=== PATIENT | female | born 1995 | race Caucasian/White ===

== ENCOUNTER 2016-12-08 21:40 | Emergency (ER) | payer BC ==
--- NOTE | ~2016-12-08 | EKG ---
PATIENT: BEBO MATTSON UNIT #: [id number] Ventricular Rate: 75 BPM Atrial Rate: 75 BPM P-R Interval: 136 ms QRS Duration: 80 ms Q-T Interval: 412 ms QTC Calculation(Bezet): 460 ms P [place]: 67 degrees Calculated R [place]: 79 degrees Calculated T [place]: 47 degrees Diagnosis Line: Normal sinus rhythm with sinus arrhythmia Diagnosis Line: Normal ECG Diagnosis Line: No previous ECGs available Diagnosis Line: Confirmed by MARIE MOODY MD ([id number]) on 12/09/2016 Diagnosis Line: 5:44:34 PM INTERPRETING MD: FRANSISCO WATSON
--- NOTE | ~2016-12-08 | CR72 ---
[facility] A Service of [facility] & [facility] RADIOLOGY TEXT RESULTS PATIENT: BEBO MATTSON LOCATION: [facility] : [birth year] UNIT #: [id number] AGE: [address]: Galileo Almaraz MD SEX: F ORDER DR: [id number] [facility] [address] [place], [place] [address] [id number] E MR#: [id number] Acc #: [id number] NAME: BEBO MATTSON : 1995 SEX: F STUDY DATE/TIME: 12/08/2016 23:19 UNIT: [facility] ROOM: STUDY DESCRIPTION: CR Chest Single View Portable Attending Physician: Galileo Almaraz M.D. Ordering Physician: Galileo Almaraz M.D. Primary Care Physician: Juliane Lucas M.D. MEDICAL IMAGING REPORT This report is preliminary unless electronic signature is present EXAM AP portable chest, 12/08/2016 at 23:19. HISTORY Chest pain, shortness of breath, headache and numbness in the hands starting today. No known injury. COMPARISON STUDIES None FINDINGS A single AP portable view of the chest shows both lungs to be clear. The heart is normal in size. The mediastinal contour is normal. No significant bone abnormalities are seen. IMPRESSION Normal portable chest. Dictated by... Solange Gabriel M.D. THIS IS AN ELECTRONICALLY VERIFIED REPORT Solange Gabriel M.D. at 12/10/2016 12:12 AM SAUL/higinio TD: 12/09/2016 11:52 JOB #: [id number] MEDICAL IMAGING REPORT COPY
[2016-12-08 22:24] LABS: BASOPHIL# 0.1 X10e3 (0-0.3); BASOPHIL% 0.7 % (0-2.5); EOSINOPHIL% 0.1 % (0.0-7.0); HEMOGLOBIN 13.3 gm/dL (12.0-16.0); LYMPHOCYTE# 1.8 X10e3 (1.0-3.5); LYMPHOCYTE% 12.6 % (17.0-45.0); MEAN CELL VOLUME 89.6 FL (83-96); MEAN CORPUSCULAR HGB CONC 32.4 g/dL (30-36); MEAN PLATELET VOLUME 8.4 FL (6.5-11.5); MONOCYTE# 0.7 X10e3 (0-1.0); MONOCYTE% 4.9 % (3.0-12.0); NEUTROPHIL% 81.7 % (40-75); PLATELET COUNT 299 X10e3 (140-420); RED BLOOD COUNT 4.57 X10e (3.90-5.30); WHITE BLOOD COUNT 14.7 X10e3 (4.0-10.5)
[2016-12-08 22:28] LABS: DIFF IND NO
[2016-12-08 22:51] LABS: ALKALINE PHOSPHATASE 45 U/L (32-92); ALT (SGPT) 12 U/L (10-40); AST (SGOT) 19 U/L (10-42); BILIRUBIN, DIRECT 0.1 mg/dL (0.0-0.2); BILIRUBIN,INDIRECT 0.1 mg/dL (0.0-0.9); BILIRUBIN,TOTAL 0.2 mg/dL (0.2-2.0); BLOOD UREA NITROGEN 8 mg/dL (9-23); CALCIUM SERUM 9.8 mg/dL (8.4-10.2); CARBON DIOXIDE 24 mmol/L (22-31); CHLORIDE 107 mmol/L (100-111); CREATININE SERUM 0.8 mg/dL (0.6-1.4); GLOM FILT RATE Estimated ABOVE60 mL/min (>60); GLUCOSE FASTING 111 mg/dL (70-110); POTASSIUM 3.5 mmol/L (3.5-5.1); PROTEIN TOTAL SERUM 7.1 g/dL (6.0-8.3); SODIUM 139 mmol/L (135-145)
[2016-12-08 22:53] LABS: URINE SOURCE CLEAN CATCH
[2016-12-08 22:57] LABS: URINE APPEARANCE CLEAR; URINE BILIRUBIN NEG (NEG); URINE BLOOD NEG (NEG); URINE COLOR YELLOW; URINE GLUCOSE NEG (NEG); URINE KETONE 1+ (NEG); URINE LEUKOCYTE ESTERASE NEG (NEG); URINE NITRATE NEG (NEG); URINE PROTEIN TRACE (NEG); URINE SPECIFIC GRAVITY 1.018 (1.003-1.035); URINE UROBILINOGEN 0.2 MG/DL (NEG)
[2016-12-08 22:59] LABS: CULTURE INDICATED? NO; URINE PH 9.5 (5-8)
[2016-12-08 23:06] LABS: AMPHETAMINE NEG (NEG); BARBITURATES NEG (NEG); BENZODIAZEPINES NEG (NEG); COCAINE NEG (NEG); MARIJUANA NEG (NEG); OPIATES NEG (NEG); TRICYCLIC ANTIDEPRESSANTS NEG (NEG); U METHADONE NEG (NEG)
[2016-12-08 23:13] LABS: INFLUENZA A NEG (NEG); INFLUENZA B NEG (NEG)
[2016-12-09 01:22] LABS: POC - CKMB <1.0 ng/mL (0.0-7.9); POC - TROPONIN <0.05 ng/mL (<=0.05)
== END 2016-12-08 23:50 | disposition home or self-care (01) ==
LOC: CED 21:40
PROVIDERS: Emergency Medicine
DX: R06.4 Hyperventilation (principal); R20.2 Paresthesia of skin
CPT/HCPCS: 36415; 71010; 80048; 80076; 80307; 81003; 82553; 84484; 84703; 85025; 85379; 87804; 93005; 96361; 96374; 96375; 99284; J1885; J2405